=== PATIENT | female | born 2000 | race Caucasian/White ===

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

== ENCOUNTER 2019-04-09 23:24 | Emergency (ER) | payer SELFPAY ==
[2019-04-09] MEDS ORDERED: ACETAMINOPHEN 325 MG TABLET PO ONE (23:55)
[2019-04-10] MEDS ORDERED: NORMAL SALINE 1000 ML 1,000 ML IV ONE (00:21)
[2019-04-10 01:15] LABS: ABSOLUTE MONOCYTES (AUTO) 0.8 10^3/uL (0.1-1.4); ABSOLUTE NEUT (AUTO) 4.7 10^3/uL (1.7-8.2); BASOPHILS % (AUTO) 0.5 % (0-2); EOSINOPHILS % (AUTO) 0.2 % (0-6); HEMATOCRIT 37.5 % (36.0-47.0); HEMOGLOBIN 12.2 g/dL (12.0-15.5); LYMPHOCYTES % (AUTO) 14.9 % (13-45); MEAN CORPUSCULAR HEMOGLOBIN 25.8 pg (27.0-33.4); MEAN CORPUSCULAR HGB CONC 32.4 g/dL (32.0-36.0); MEAN CORPUSCULAR VOLUME 80 fl (80-97); MONOCYTES % (AUTO) 12.4 % (3-13); PLATELET COUNT 193 10^3/uL (150-450); RED BLOOD COUNT 4.71 10^6/uL (3.72-5.28); RED CELL DISTRIBUTION WIDTH 17.9 % (11.5-14.0); TOTAL CELLS COUNTED % (AUTO) 100 %; WHITE BLOOD COUNT 6.5 10^3/uL (4.0-10.5)
[2019-04-10 01:34] LABS: ALBUMIN 4.7 g/dL (3.7-5.6); ALKALINE PHOSPHATASE 66 U/L (50-135); ANION GAP 11 (5-19); ASPARTATE AMINO TRANSFERASE 34 U/L (5-30); BILIRUBIN,DIRECT 0.3 mg/dL (0.0-0.4); BILIRUBIN,TOTAL 0.5 mg/dL (0.2-1.3); BLOOD UREA NITROGEN 10 mg/dL (7-20); CALCIUM 9.3 mg/dL (8.4-10.2); CARBON DIOXIDE 23 mmol/L (22-30); CHLORIDE 103 mmol/L (98-107); GLUCOSE 90 mg/dL (75-110); POTASSIUM 4.3 mmol/L (3.6-5.0); TOTAL PROTEIN 7.8 g/dL (6.3-8.2)
[2019-04-10 02:36] LABS: APPEARANCE,URINE SLIGHTLY-CLOUDY; BILIRUBIN,URINE NEGATIVE (NEGATIVE); COLOR,URINE YELLOW; GLUCOSE, URINE NEGATIVE (NEGATIVE); KETONES,URINE NEGATIVE (NEGATIVE); LEUKOCYTE ESTERASE,URINE MODERATE (NEGATIVE); NITRITE,URINE NEGATIVE (NEGATIVE); PROTEIN,URINE 30 mg/dL (NEGATIVE); URINE SPECIFIC GRAVITY 1.026; UROBILINOGEN,URINE NEGATIVE mg/dL (<2.0)
[2019-04-10] MEDS ORDERED: CEFTRIAXONE 1 GM/D5W RTU 1 GM/50 ML RTUPB IV ONE (02:38)
[2019-04-10] MEDS ORDERED: CEFTRIAXONE INJ 1000 MG VIAL ONE (02:52)
--- NOTE | 2019-04-10 03:17 | ER Document Report ---
ED GI/ - General Chief Complaint: Urinary Problem Stated Complaint: POSSIBLE UTI Time Seen by Provider: 04/09/19 23:55 Notes: Patient is a 18-year-old female presents to the emergency department for generalized dysuria which started on . Patient states she is also had a subjective fever at home. States she did feel nauseated but has not vomited. Currently denying any nausea. Patient's denying any diarrhea. Patient's denying any vaginal discharge to include itching or malodorous. Patient states she did take Azo today for generalized dysuria. Patient is unsure of her last menstrual cycle she is on the Depakote shot. Patient denies any medical problems, denies any daily medications, denies any allergies. TRAVEL OUTSIDE OF THE [place] IN LAST 30 DAYS: No - Related Data Allergies/Adverse Reactions: No Known Allergies Allergy (Verified 04/09/19 23:58) Past Medical History - General Information source: Patient Last Menstrual Period: depo - Social History Smoking Status: Current Some Day Smoker Frequency of alcohol use: None Drug Abuse: None Family History: Reviewed & Not Pertinent Patient has suicidal ideation: No Patient has homicidal ideation: No Renal/ Medical History: Denies: Hx Peritoneal Dialysis Psychiatric Medical History: Reports: Hx Bipolar Disorder - Immunizations Hx Diphtheria, Pertussis, Tetanus Vaccination: - unknown Review of Systems - Review of Systems Constitutional: Fever EENT: No symptoms reported Cardiovascular: No symptoms reported Respiratory: No symptoms reported Gastrointestinal: See HPI Genitourinary: See HPI Female Genitourinary: See HPI Musculoskeletal: denies: Back pain Skin: No symptoms reported Hematologic/Lymphatic: No symptoms reported Neurological/Psychological: No symptoms reported Physical Exam - Vital signs Vitals: Temp Pulse Resp BP Pulse Ox 102.2 F H 123 H 19 100/60 98 04/09/19 23:55 04/09/19 23:55 04/09/19 23:55 04/09/19 23:55 04/09/19 23:55 - Notes Notes: GENERAL: Alert, interacts well. No acute distress. Febrile on initial vitals, tachycardic. HEAD: Normocephalic, atraumatic. EYES: Pupils equal, round, and reactive to light. Extraocular movements intact. ENT: Oral mucosa moist, tongue midline. NECK: Full range of motion. Supple. Trachea midline. LUNGS: Clear to auscultation bilaterally, no wheezes, rales, or rhonchi. No respiratory distress. HEART: Tachycardic rate and rhythm. No murmur ABDOMEN: Soft, non-tender. Non-distended. Bowel sounds present in all 4 quadrants. No McBurney's point tenderness, no Beltran sign noted, minor suprapubic tenderness noted EXTREMITIES: Moves all 4 extremities spontaneously. No edema, normal radial and dorsalis pedis pulses bilaterally. No cyanosis. BACK: no cervical, thoracic, lumbar midline tenderness. No saddle anesthesia, normal distal neurovascular exam. No CVA tenderness noted bilaterally NEUROLOGICAL: Alert and oriented x3. Normal speech. cranial nerves II through XII grossly intact PSYCH: Normal affect, normal mood. SKIN: Warm, dry, normal turgor. No rashes or lesions noted. Course - Re-evaluation Re-evalutation: 04/10/19 03:14 Laboratory 04/10/19 04/10/19 04/10/19 00:47 00:47 00:47 WBC 6.5 RBC 4.71 Hgb 12.2 Hct 37.5 MCV 80 MCH 25.8 L MCHC 32.4 RDW 17.9 H Plt Count 193 Seg Neutrophils % 72.0 Lymphocytes % 14.9 Monocytes % 12.4 Eosinophils % 0.2 Basophils % 0.5 Absolute Neutrophils 4.7 Absolute Lymphocytes 1.0 Absolute Monocytes 0.8 Absolute Eosinophils 0.0 Absolute Basophils 0.0 Sodium 137.0 Potassium 4.3 Chloride 103 Carbon Dioxide 23 Anion Gap 11 BUN 10 Creatinine 0.61 Est GFR ( Amer) > 60 Est GFR (Non-Af Amer) > 60 Glucose 90 Lactic Acid 0.8 Calcium 9.3 Total Bilirubin 0.5 Direct Bilirubin 0.3 Neonat Total Bilirubin Not Reportable Neonat Direct Bilirubin Not Reportable Neonat Indirect Bili Not Reportable AST 34 H ALT 16 Alkaline Phosphatase 66 Total Protein 7.8 Albumin 4.7 Urine Color Urine Appearance Urine pH Ur Specific [place] Urine Protein Urine Glucose (UA) Urine Ketones Urine Blood Urine Nitrite Urine Bilirubin Urine Urobilinogen Ur Leukocyte Esterase Urine WBC (Auto) Urine RBC (Auto) Urine Bacteria (Auto) Squamous Epi Cells Auto Urine Mucus (Auto) Urine Ascorbic Acid Urine HCG, Qual 04/10/19 00:47 WBC RBC Hgb Hct MCV MCH MCHC RDW Plt Count Seg Neutrophils % Lymphocytes % Monocytes % Eosinophils % Basophils % Absolute Neutrophils Absolute Lymphocytes Absolute Monocytes Absolute Eosinophils Absolute Basophils Sodium Potassium Chloride Carbon Dioxide Anion Gap BUN Creatinine Est GFR ( Amer) Est GFR (Non-Af Amer) Glucose Lactic Acid Calcium Total Bilirubin Direct Bilirubin Neonat Total Bilirubin Neonat Direct Bilirubin Neonat Indirect Bili AST ALT Alkaline Phosphatase Total Protein Albumin Urine Color YELLOW Urine Appearance SLIGHTLY-CLOUDY Urine pH 5.0 Ur Specific [place] 1.026 Urine Protein 30 H Urine Glucose (UA) NEGATIVE Urine Ketones NEGATIVE Urine Blood NEGATIVE Urine Nitrite NEGATIVE Urine Bilirubin NEGATIVE Urine Urobilinogen NEGATIVE Ur Leukocyte Esterase MODERATE H Urine WBC (Auto) 25 Urine RBC (Auto) 30 Urine Bacteria (Auto) TRACE Squamous Epi Cells Auto 4 Urine Mucus (Auto) FEW Urine Ascorbic Acid 40 H Urine HCG, Qual NEGATIVE Patient's labs showed no signs of leukocytosis, does show signs of urinary tract infection with no change in patient's kidney function. Patient continues without flank pain. Patient was treated with fluids and antipyretics in the emergency department. Vitals are now within normal limits. Patient was also given dose of ceftriaxone in the emergency department. Discussed use of antibiotics and nausea medication as needed. At this time will discharge with return precautions and follow-up recommendations. Verbal discharge instructions given a the bedside and opportunity for questions given. Medication warnings reviewed. Patient is in agreement with this plan and has verbalized understanding of return precautions and the need for primary care follow-up in the next 24-72 hours. This medical record was dictated with voice recognizing software. There may be grammatical, syntax errors that are unintended. - Vital Signs Vital signs: Temp Pulse Resp BP Pulse Ox 102.2 F H 123 H 19 100/60 98 04/09/19 23:55 04/09/19 23:55 04/09/19 23:55 04/09/19 23:55 04/09/19 23:55 - Laboratory Result Diagrams: 04/10/19 00:47 04/10/19 00:47 Laboratory results interpreted by me: 04/10/19 04/10/19 04/10/19 00:47 00:47 00:47 MCH 25.8 L RDW 17.9 H AST 34 H Urine Protein 30 H Ur Leukocyte Esterase MODERATE H Urine Ascorbic Acid 40 H Discharge - Discharge Clinical Impression: Urinary tract infection Qualifiers: Urinary tract infection type: acute pyelonephritis Qualified Code(s): N10 - Acute pyelonephritis Condition: Stable Disposition: HOME, SELF-CARE Instructions: Cephalexin ([facility]), Urinary Tract Infection ([facility]) Additional Instructions: As we discussed you have been seen and treated in the emergency department for urinary tract infection. Please take antibiotics as prescribed. Please also take antinausea medication as needed. Please follow-up with your primary care provider in the next 24 to 48 hours. Please return to the emergency room for any further concerns. Prescriptions: Cephalexin Monohydrate [Keflex 500 mg Capsule] 500 mg PO BID 7 Days #14 capsule Ondansetron [Zofran Odt 4 mg Tablet] 1 tab PO Q6 PRN #10 tab.rapdis PRN Reason: For Nausea/Vomiting Forms: Return to Work
[2019-04-10 03:40] VITALS: BP 104/52
== END 2019-04-10 03:40 | disposition home or self-care (01) ==
LOC: ER 23:24
DX: N10 Acute pyelonephritis (principal); R39.198 Other difficulties with micturition; R30.0 Dysuria; R50.9 Fever, unspecified; R11.0 Nausea; F17.200 Nicotine dependence, unspecified, uncomplicated
CPT/HCPCS: 36415; 87086; 83605; 85025; 81025; 80053; 81001; J7030; J0696; 96361; 96365; 99283

== ENCOUNTER 2020-08-18 22:08 | Emergency (ER) | payer SELFPAY ==
[2020-08-18] MEDS ORDERED: RINGERS SOLUTION,LACTATED 1,000 ML IV ONE (22:31)
--- NOTE | 2020-08-18 22:35 | ER Document Report ---
ED Medical Screen (RME) - General Chief Complaint: Abdominal Pain Stated Complaint: POSSIBLE DRUG ABUSE Time Seen by Provider: 08/18/20 22:22 Mode of Arrival: Ambulatory Information source: Patient Notes: Patient is a 19-year-old female comes in emergency room stating that approximately 2 weeks ago she went to [place] with some girlfriends the mention of "cocaine" was brought up and she spent 5 days doing cocaine by snorting it. She denies any history of injectables. She states she only has done the cocaine no other history with exception of some marijuana. She states that after leaving [place] she went to [place] where she started having abdominal pain and discomfort mostly suprapubic and lower abdominal area. She is gotten to the point where she does not want to eat much. She denies any vaginal discharge or dysuria type presentation. She states that while standing outside in the emergency room she got lightheaded and needed dizzy. She states that her pain in the abdomen seems to increase after eating primarily. She vomited 2 times yesterday reddish-mark color material. She is concerned because when she left to go to [place] she had a weight of 132 pounds and when she returned she is down to 128 pounds. She does smoke marijuana but does not smoke cigarettes. Last menstrual period approximately 2 and half weeks ago. Patient does state that she was not sexually active prior to leaving [place] and was not sexually active there she does state that prior to leaving her and her "man" got away from having sex and I argued about it and when she came back they have had intercourse the past couple days and have no discomfort with it. Patient does state that back in March she was diagnosed with the coronavirus. At that time she had symptomatology of night sweats since congestion etc. Physical examination shows patient to be a thin appearing 19-year-old female is in no apparent distress on examination. Cardiac showed a regular rate and rhythm without any murmur auscultated. Abdomen: In a sitting position patient has bowel sounds all 4 quads she is diffusely tender in the suprapubic region. No tenderness in the right or left lower quadrant areas. I have greeted and performed a rapid initial assessment of this patient. A comprehensive ED assessment and evaluation of the patient, analysis of test results and completion of the medical decision making process will be conducted by additional ED providers. Dictation of this chart was performed using voice recognition software; therefore, there may be some unintended grammatical errors. TRAVEL OUTSIDE OF THE [place] IN LAST 30 DAYS: No - Related Data Allergies/Adverse Reactions: No Known Allergies Allergy (Verified 04/09/19 23:58) Past Medical History - Social History Chew tobacco use (# tins/day): No Frequency of alcohol use: Occasional Drug Abuse: Cocaine, Marijuana Renal/ Medical History: Denies: Hx Peritoneal Dialysis Psychiatric Medical History: Reports: Hx Bipolar Disorder - Immunizations Hx Diphtheria, Pertussis, Tetanus Vaccination: - unknown Physical Exam - Vital signs Vitals: Temp Pulse Resp BP Pulse Ox 98.3 F 72 16 99/83 L 100 08/18/20 22:14 08/18/20 22:14 08/18/20 22:14 08/18/20 22:14 08/18/20 22:14 Course - Vital Signs Vital signs: Temp Pulse Resp BP Pulse Ox 98.3 F 72 16 99/83 L 100 08/18/20 22:26 08/18/20 22:14 08/18/20 22:14 08/18/20 22:14 08/18/20 22:14
[2020-08-19 00:23] LABS: ABSOLUTE EOSINOPHILS # (AUTO) 0.1 10^3/uL (0.0-0.6); ABSOLUTE LYMPHOCYTES (AUTO) 1.6 10^3/uL (0.5-4.7); ABSOLUTE MONOCYTES (AUTO) 0.4 10^3/uL (0.1-1.4); ABSOLUTE NEUT (AUTO) 3.6 10^3/uL (1.7-8.2); BASOPHILS % (AUTO) 0.4 % (0-2); EOSINOPHILS % (AUTO) 0.9 % (0-6); HEMATOCRIT 37.6 % (36.0-47.0); HEMOGLOBIN 12.3 g/dL (12.0-15.5); LYMPHOCYTES % (AUTO) 28.5 % (13-45); MEAN CORPUSCULAR HEMOGLOBIN 28.7 pg (27.0-33.4); MEAN CORPUSCULAR HGB CONC 32.7 g/dL (32.0-36.0); MEAN CORPUSCULAR VOLUME 88 fl (80-97); MONOCYTES % (AUTO) 7.7 % (3-13); PLATELET COUNT 198 10^3/uL (150-450); RED BLOOD COUNT 4.29 10^6/uL (3.72-5.28); RED CELL DISTRIBUTION WIDTH 14.3 % (11.5-14.0); SEGMENTED NEUTROPHILS % (AUTO) 62.5 % (42-78); TOTAL CELLS COUNTED % (AUTO) 100 %; WHITE BLOOD COUNT 5.7 10^3/uL (4.0-10.5)
[2020-08-19] MEDS ORDERED: ONDANSETRON HCL INJ/PF 4 MG/2 ML SDV IV ONE (00:27)
[2020-08-19 00:36] LABS: ALBUMIN 4.3 g/dL (3.5-5.0); ALKALINE PHOSPHATASE 47 U/L (38-126); ANION GAP 8 (5-19); ASPARTATE AMINO TRANSFERASE 20 U/L (14-36); BILIRUBIN,DIRECT 0.1 mg/dL (0.0-0.4); BILIRUBIN,TOTAL 0.5 mg/dL (0.2-1.3); BLOOD UREA NITROGEN 7 mg/dL (7-20); CALCIUM 9.7 mg/dL (8.4-10.2); CARBON DIOXIDE 25 mmol/L (22-30); CHLORIDE 107 mmol/L (98-107); GLUCOSE 87 mg/dL (75-110); POTASSIUM 4.2 mmol/L (3.6-5.0)
[2020-08-19 01:23] LABS: BACTERIA (WET MOUNT) 4+ BACTERIA SEEN; EPITHELIALS (WET MOUNT) 3+ EPITHELIALS SEEN; T.VAGINALIS (WET MOUNT) NO TRICHOMONAS SEEN; YEAST (WET MOUNT) NO YEAST SEEN
[2020-08-19 01:24] LABS: RBCS (WET MOUNT) NO RBCS SEEN; WBCS (WET MOUNT) 1+ WBCS SEEN
[2020-08-19 01:38] LABS: APPEARANCE,URINE SLIGHTLY-CLOUDY; BILIRUBIN,URINE NEGATIVE (NEGATIVE); COLOR,URINE YELLOW; GLUCOSE, URINE NEGATIVE (NEGATIVE); KETONES,URINE 20 mg/dL (NEGATIVE); LEUKOCYTE ESTERASE,URINE SMALL (NEGATIVE); NITRITE,URINE NEGATIVE (NEGATIVE); PROTEIN,URINE NEGATIVE (NEGATIVE); UROBILINOGEN,URINE NEGATIVE mg/dL (<2.0)
[2020-08-19 01:52] LABS: URINE AMPHETAMINES SCREEN NEGATIVE; URINE BARBITURATES SCREEN NEGATIVE; URINE BENZODIAZEPINES SCREEN NEGATIVE; URINE COCAINE SCREEN NEGATIVE; URINE METHADONE SCREEN NEGATIVE; URINE PHENCYCLIDINE SCREEN NEGATIVE
[2020-08-19 02:19] LABS: URINE MARIJUANA (THC) SCREEN UNCONFIRMED POSITIVE
[2020-08-19 02:59] LABS: CHLAM PCR NOT DETECTED (NOT DETECT)
[2020-08-19] MEDS ORDERED: CEFTRIAXONE 1 GM/D5W RTU 50 ML IV ONE (03:46)
--- NOTE | 2020-08-19 03:54 | RADIOLOGY REPORT (SQ) ---
Ultrasound OB transvaginal on 08/19/2020 at 2:34 AM CLINICAL INDICATION: Pelvic pain, nausea and vomiting, positive test COMPARISON: None FINDINGS: Multiple sonographic images are obtained throughout the pelvis by transvaginal approach, both transverse and sagittal images are obtained. The right ovary measures approximately 3.6 x 1.3 x 2.1 cm. Flow is demonstrated within the right ovary. Left ovary measures approximately 3.1 x 2.8 x 2.2 cm. Flow is demonstrated in the left ovary. No adnexal mass or fluid collection is noted. The uterus measures approximately 7.7 x 4.1 x 5.8 cm. There is a single early intrauterine with gestational sac and small yolk sac and pole. Estimated gestational age by crown-rump length measurement is an approximate five week six day gestation. Positive cardiac activity is noted with a heart rate of 106 beats per minute. Gestational sac shape appears unremarkable. Gestation is too early for placental evaluation. IMPRESSION: Single living early intrauterine of approximate five week six day gestation with no acute abnormality noted.
--- NOTE | 2020-08-19 03:55 | ER Document Report ---
ED General - General Chief Complaint: Abdominal Pain Stated Complaint: POSSIBLE DRUG ABUSE Time Seen by Provider: 08/18/20 22:22 Mode of Arrival: Ambulatory TRAVEL OUTSIDE OF THE [place] IN LAST 30 DAYS: No - HPI Notes: Chief Complaint: Nausea vomiting, abdominal pain Historian: History obtained from patient HPI: This is a 19-year-old female presents to the ER complaining of 5 days of nausea vomiting and lower abdominal pain. Patient says she went to [place] and ended up snorting cocaine for 5 days. She returned 5 days ago and ever since her return she had developed nausea vomiting and lower abdominal pain. She denies any new sexual partners or concern for STDs. Last menstrual period was 1 month ago. She denies vaginal discharge. She is tolerating small amounts of p .o. fluid. No fevers or chills. Denies chest pain or shortness of breath. no prior abdom surgeries. denies dysuria as well. ROS: Constitutional: no fevers. HEENT: no MENDEZ, sore throat, or vision changes. CV: no chest pain or palpitations. Resp: no cough or SOB. GI: lower abdom pain. nausea and vomiting : no dysuria, hematuria, or incont. MSK: no back pain, no joint swelling/redness. Skin: no rashes or itching. Neuro: no seizures, weakness, numbness, or confusion. Hematological: no ecchymosis or easy bleeding. Endocrine: no polyuria/polydipsia, no heat/cold intolerance. Psych: no SI/HI, AH/VH or memory loss. PMHx: Reviewed and agree as charted by RN. PSHx: Reviewed and agree as charted by RN. SOCHx: Reviewed and agree as charted by RN. FHX: No significant familial comorbid conditions directly related to patient complaint Current Medications: Reviewed and agree with the patient medications as charted by the RN. Allergies: Reviewed and agree with the listed allergies as charted by the RN Physical Exam: Vitals: Reviewed in chart as documented by RN. General: Alert and in NAD. Head: Normocephalic; atraumatic Eyes: PERRLA, Conjunctivae clear sclerae non-icteric bilat ENT: no soft palate swelling or uvular deviation Neck: trachea midline, no unilateral swelling/tenderness/lymphadenopathy CV: RRR, no M/R/G; symmetric distal pulses Resp: respirations even and unlabored, CTA bilat. GI: abd soft, mild suprapubic tenderness. no rebound. no guarding. neg rovsigns. no cvat MSK: FROM of all extremities. No midline CTL spine tenderness/deformity Skin: warm, moist, good turgor. no rash/lesions Neuro: Alert and oriented X 4. following CN 2-12 intact. no unilateral weakness/numbness Psych: No SI/HI or AH/VH. ED Results: Medical Decision-Making: ddx: uti, pyelo, IUP, ectopic, STI, PID, n/v, dehydration, electrolyte abnormality, cyclical vomiting, kidney stones, AGE, viral syndrome, diverticulitis, colitis, ect plan- labs, UA, IVF, anti emetics. test. ct abd/pelvis w/ iv contrast urine positive- CT cancelled. updated pt regrading preg results. pt was unaware of - says ''i was told when i was younger that i couldnt get '' though she knows no details beyond that. HCG quant and US transvaginal ordered to r/o ectopic, miscarriage, ect UA- obvious infectoin- WBC clumps ordered rocephin 1gm IV cbc wnl bmp wnl Hcg quant- 19k no further episodes of vomiting in the ED. pending US results - Related Data Allergies/Adverse Reactions: No Known Allergies Allergy (Verified 04/09/19 23:58) Past Medical History - General Information source: Patient - Social History Smoking Status: Current Some Day Smoker Chew tobacco use (# tins/day): No Frequency of alcohol use: Occasional Drug Abuse: Cocaine, Marijuana Family History: Reviewed & Not Pertinent Patient has homicidal ideation: No Renal/ Medical History: Denies: Hx Peritoneal Dialysis Psychiatric Medical History: Reports: Hx Bipolar Disorder - Immunizations Hx Diphtheria, Pertussis, Tetanus Vaccination: - unknown Physical Exam - Vital signs Vitals: Temp Pulse Resp BP Pulse Ox 98.3 F 72 16 99/83 L 100 08/18/20 22:14 08/18/20 22:14 08/18/20 22:14 08/18/20 22:14 08/18/20 22:14 Course - Re-evaluation Re-evalutation: 08/19/20 04:16 Patient updated regarding labs and ultrasound results. Refer to [facility] TECHN[facility] and start prenatals. She is to abstain from further cocaine or illicit substances alcohol and nicotine. Will DC with Keflex as well as a few days Zofran. return factors discussed. - Vital Signs Vital signs: Temp Pulse Resp BP Pulse Ox 98.3 F 72 16 99/83 L 100 08/18/20 22:26 08/18/20 22:14 08/18/20 22:14 08/18/20 22:14 08/18/20 22:14 - Laboratory Results Result Diagrams: 08/19/20 00:05 08/19/20 00:05 Laboratory Results Interpreted: 08/19/20 08/19/20 08/19/20 00:05 00:05 01:02 RDW 14.3 H Beta HCG, Quant 54138.00 H Urine Ketones 20 H Ur Leukocyte Esterase SMALL H Urine HCG, Qual POSITIVE H Critical Laboratory Results Reviewed: No Critical Results - Radiology Results Radiology Results Interpreted: 08/19/20 04:15 Ultrasound results5-week 6-day intrauterine , no other abnormality. Critical Radiology Results Reviewed: No Critical Results Discharge - Discharge Clinical Impression: IUP (intrauterine ), incidental UTI in Qualifiers: Trimester: first trimester Qualified Code(s): O23.41 - Unspecified infection of urinary tract in , first trimester Nausea & vomiting Qualifiers: Vomiting type: unspecified Vomiting Intractability: non-intractable Qualified Code(s): R11.2 - Nausea with vomiting, unspecified Condition: Stable Disposition: HOME, SELF-CARE Instructions: ([facility]), Urinary Tract Infection ([facility]) Additional Instructions: call and schedule appointment with obgyn- dr alaniz. stop drug use, alcohol, and nicotine. start vitmains. complete entire course of antibiotics. follow up with your doctor in 2-3 days. return to the ER if your condition worsens. Prescriptions: Cephalexin Monohydrate [Keflex 500 mg Capsule] 500 mg PO Q6H 7 Days #28 capsule Pnv No.103/Folic/Om3s/Fish Oil [ Gummies] 1 each PO DAILY #30 tab.chew Ondansetron [Zofran Odt 4 mg Tablet] 1 tab PO Q4H PRN #10 tab.rapdis PRN Reason: For Nausea/Vomiting Referrals: CHRISTIAN ALANIZ MD [ACTIVE STAFF] - Follow up as needed
[2020-08-19] MEDS ORDERED: CEFTRIAXONE 1 GM/D5W RTU 1 GM/50 ML RTUPB IV ONE (03:59)
[2020-08-19 04:23] VITALS: BP 111/59
== END 2020-08-19 04:31 | disposition home or self-care (01) ==
LOC: ER 22:08
DX: O23.41 Unspecified infection of urinary tract in pregnancy, first trimester (principal); O21.9 Vomiting of pregnancy, unspecified; O26.891 Other specified pregnancy related conditions, first trimester; R10.30 Lower abdominal pain, unspecified; O99.321 Drug use complicating pregnancy, first trimester; F14.10 Cocaine abuse, uncomplicated; F12.10 Cannabis abuse, uncomplicated; O99.331 Smoking (tobacco) complicating pregnancy, first trimester; F17.200 Nicotine dependence, unspecified, uncomplicated; Z3A.01 Less than 8 weeks gestation of pregnancy
CPT/HCPCS: 99285; 96361; 96375; 96365; 36415; 87086; 87210; 84702; 83690; 85025; 81025; 87088; 80053; 81001; 80307; 87491; 87591; 76817; 93976; J2405; J7120; J0696; 87186

== ENCOUNTER 2020-08-20 14:23 | Emergency (ER) | payer SELFPAY | END 2020-08-20 14:45 | disposition left against medical advice (07) | LOC: ER 14:23 | DX: Z53.21 Procedure and treatment not carried out due to patient leaving prior to being seen by health care provider (principal) ==